=== PATIENT | female | born 1935 | race Caucasian/White ===

== ENCOUNTER 2018-04-02 09:33 | Observation (INO) ==
[2018-04-02 10:31] LABS: Basophils # 0.1 10*3/uL (0.0-0.2); Basophils % 0.9 % (0.0-0.8); Eosinophils # 0.3 10*3/uL (0.0-0.87); Eosinophils % 5.8 % (0.00-10.9); Hematocrit 38.2 VOL% (35.7-47.0); Hemoglobin 12.9 GM/DL (12.0-16.0); Immature Granulocytes % 0.2 %; Immature Granulocytes Absolute 0.01 #; Lymphocytes # 1.3 10*3/uL (1.4-4.0); Lymphocytes % 24.6 % (21.3-54.2); Mean Corpuscular HGB Conc 33.8 GM/DL (32-36); Mean Corpuscular Hemoglobin 32 PG (27-34); Mean Platelet Volume 11.3 FL (9.6-12.0); Monocytes # 0.5 10*3/uL (0.11-0.8); Monocytes % 8.8 % (1.7-12.7); Neutrophils # 3.2 10*3/uL (1.4-7.4); Neutrophils % 59.7 % (38.7-73.9); Platelet Count 169 T/CUMM (130-400); Red Blood Count 3.98 MC/CUMM (3.8-5.5); Red Cell Distribution Width 12.6 % (9.3-17.3); White Blood Count 5.4 T/CUMM (4-12)
[2018-04-02 10:44] LABS: Alanine Aminotransferase 15 U/L (13-56); Albumin 3.5 G/DL (3.4-5.0); Alkaline Phosphatase 56 U/L (45-117); Aspartate Amino Transferase 15 U/L (0-37); Blood Urea Nitrogen 28 MG/DL (7-18); Glucose 116 MG/DL (74-106); Osmolality,Calculated 292.8 MOS/KG (273-304); Potassium 3.6 MMOL/L (3.5-5.1); Sodium 144 MMOL/L (136-145); Total Protein 7.2 G/DL (6.4-8.3)
[2018-04-02] MEDS ORDERED: ALBUTEROL/IPRATROPIUM 3 ML NEB RESP TX STA (10:52)
[2018-04-02] MEDS ORDERED: ONDANSETRON 4 MG/2 ML VIAL IV STA (10:52)
[2018-04-02] MEDS ORDERED: FUROSEMIDE 100 MG/10 ML VIAL IV STA (10:52)
[2018-04-02 12:58] LABS: Apearance,Urine Slightly Hazy (Clear); Bacteria,Urine Many /HPF (Few); Bilirubin,Urine Negative (Negative); Blood, Urine Negative (Negative); Glucose,Urine (UA) Negative (Negative); Ketones,Urine Negative (Negative); Mucus,Urine Occasional /LPF (Occasional); Nitrite,Urine Negative (Negative); Protein,Urine Negative; RBC,Urine 3 /HPF (0-4); Squamous Epithelial Cell,Urine Occasional /HPF (0-10); Transitional Epi Cells,Urine Occasional /HPF (<1); Urine Color Yellow (Yellow); Urine Specific Gravity 1.008 (1.001-1.035); Urine Urobilinogen < 2.0 EU/DL (0.2-1.0); WBC,Urine 37 /HPF (0-6)
[2018-04-02] MEDS ORDERED: cefTRIAXone 1,000 MG in SODIUM CHLORIDE 0.9% 100 ML IV STA (13:38)
[2018-04-02 15:23] LABS: Lactic Acid 2.9 MMOL/L (0.4-2.0)
[2018-04-02] MEDS ORDERED: LEVOFLOXACIN INJ 500 MG in PREMIX 1 EACH IV ONE (16:00)
[2018-04-02] MEDS ORDERED: ACETAMINOPHEN 325 MG TABLET PO PRN (16:15)
[2018-04-02] MEDS ORDERED: ONDANSETRON 4 MG/2 ML VIAL IV PRN (16:15)
[2018-04-02] MEDS: cefTRIAXone 1,000 MG in SYRINGE 1 EACH IV SCH (16:37)
[2018-04-02] MEDS: SODIUM CHLORIDE 0.9% 1,000 ML IV SCH (16:54)
[2018-04-02] MEDS: ENOXAPARIN 40 MG/0.4 ML SYRINGE SUBCUT SCH (16:55)
[2018-04-02 18:08] LABS: INR 0.9; PT Patient Result 9.9 SECS
[2018-04-02] MEDS: DOCUSATE SODIUM 100 MG CAPSULE PO SCH (20:09)
[2018-04-02] MEDS: DONEPEZIL 5 MG TABLET PO SCH (20:09)
[2018-04-02] MEDS: SIMVASTATIN 20 MG TABLET PO SCH (20:09)
[2018-04-03] MEDS: SODIUM CHLORIDE 0.9% 1,000 ML IV SCH ×2 (05:23→20:58)
[2018-04-03 05:38] LABS: Basophils # 0.1 10*3/uL (0.0-0.2); Basophils % 0.9 % (0.0-0.8); Eosinophils # 0.3 10*3/uL (0.0-0.87); Eosinophils % 4.1 % (0.00-10.9); Hematocrit 37.7 VOL% (35.7-47.0); Hemoglobin 12.5 GM/DL (12.0-16.0); Immature Granulocytes % 0.3 %; Immature Granulocytes Absolute 0.02 #; Lymphocytes # 1.8 10*3/uL (1.4-4.0); Mean Corpuscular HGB Conc 33.2 GM/DL (32-36); Mean Corpuscular Hemoglobin 32 PG (27-34); Mean Corpuscular Volume 95.4 FL (87-102); Mean Platelet Volume 10.9 FL (9.6-12.0); Monocytes # 0.6 10*3/uL (0.11-0.8); Monocytes % 8.7 % (1.7-12.7); Neutrophils # 4.2 10*3/uL (1.4-7.4); Platelet Count 172 T/CUMM (130-400); Red Blood Count 3.95 MC/CUMM (3.8-5.5); Red Cell Distribution Width 12.6 % (9.3-17.3)
[2018-04-03 06:10] LABS: Albumin 3.1 G/DL (3.4-5.0); Bilirubin,Total 0.6 MG/DL (0.2-1.0); Calcium 8.8 MG/DL (8.5-10.1); Osmolality,Calculated 291.8 MOS/KG (273-304); Risk Ratio 2.7; Total Protein 6.7 G/DL (6.4-8.3); VLDL CHOLESTEROL 24.2 MG/DL
[2018-04-03] MEDS: ASPIRIN EC 81 MG TABLET PO SCH (08:31)
[2018-04-03] MEDS: PANTOPRAZOLE 40 MG VIAL IV SCH (08:31)
[2018-04-03] MEDS: amLODIPine 5 MG TABLET PO SCH (08:31)
[2018-04-03] MEDS: DOCUSATE SODIUM 100 MG CAPSULE PO SCH ×2 (08:31→20:58)
[2018-04-03] MEDS: SERTRALINE 25 MG TABLET PO SCH (08:31)
[2018-04-03] MEDS ORDERED: MELATONIN 3 MG TABLET PO PRN (08:59)
[2018-04-03 09:54] LABS: Apearance,Urine Slightly Hazy (Clear); Bacteria,Urine Occasional /HPF (Few); Bilirubin,Urine Negative (Negative); Blood, Urine Negative (Negative); Glucose,Urine (UA) Negative (Negative); Ketones,Urine Negative (Negative); Mucus,Urine Many /LPF (Occasional); Nitrite,Urine Positive (Negative); Protein,Urine Negative; RBC,Urine 1 /HPF (0-4); Squamous Epithelial Cell,Urine Occasional /HPF (0-10); Urine Color Yellow (Yellow); Urine Urobilinogen < 2.0 EU/DL (0.2-1.0); WBC,Urine 20 /HPF (0-6)
[2018-04-03] MEDS: cefTRIAXone 1,000 MG in SYRINGE 1 EACH IV SCH (15:32)
[2018-04-03] MEDS: ENOXAPARIN 40 MG/0.4 ML SYRINGE SUBCUT SCH (15:32)
[2018-04-03] MEDS ORDERED: LEVOFLOXACIN INJ 250 MG in PREMIX 1 EACH IV SCH (16:00)
[2018-04-03] MEDS: SIMVASTATIN 20 MG TABLET PO SCH (20:58)
[2018-04-03] MEDS: DONEPEZIL 5 MG TABLET PO SCH (20:58)
[2018-04-04] MEDS: DOCUSATE SODIUM 100 MG CAPSULE PO SCH (09:26)
[2018-04-04] MEDS: SODIUM CHLORIDE 0.9% 1,000 ML IV SCH (09:26)
[2018-04-04] MEDS: amLODIPine 5 MG TABLET PO SCH (09:26)
[2018-04-04] MEDS: SERTRALINE 25 MG TABLET PO SCH (09:26)
[2018-04-04] MEDS: PANTOPRAZOLE 40 MG VIAL IV SCH (09:27)
[2018-04-04] MEDS: ASPIRIN EC 81 MG TABLET PO SCH (09:27)
[2018-04-04 12:00] VITALS: BP 160/74
== END 2018-04-04 11:00 | disposition home health service (06) ==
LOC: N.ED 09:33 → N.EDINP 09:33 → N.5E 16:20
PROVIDERS: ADMIT Family Medicine; ATTEND Family Medicine

== ENCOUNTER 2019-10-12 19:05 | Observation (INO) ==
[2019-10-12] MEDS ORDERED: ONDANSETRON 4 MG/2 ML VIAL IV ONE ×2 (19:10→20:37)
[2019-10-12] MEDS ORDERED: MORPHINE 4 MG/1 ML VIAL IV ONE ×2 (19:10→20:37)
[2019-10-12] MEDS ORDERED: SODIUM CHLORIDE 0.9% 1,000 ML IV STA ×2 (19:10→20:22)
[2019-10-12 19:44] LABS: Basophils # 0.1 10*3/uL (0.0-0.2); Basophils % 0.7 % (0.0-0.8); Eosinophils # 0.3 10*3/uL (0.0-0.87); Eosinophils % 3.3 % (0.00-10.9); Hematocrit 37.5 VOL% (35.7-47.0); Hemoglobin 12.5 GM/DL (12.0-16.0); Immature Granulocytes % 0.3 %; Immature Granulocytes Absolute 0.03 #; Lymphocytes # 1.8 10*3/uL (1.4-4.0); Lymphocytes % 17.6 % (21.3-54.2); Mean Corpuscular HGB Conc 33.3 GM/DL (32-36); Mean Corpuscular Volume 96.6 FL (87-102); Monocytes % 7.8 % (1.7-12.7); Neutrophils % 70.3 % (38.7-73.9); Platelet Count 159 T/CUMM (130-400); Red Blood Count 3.88 MC/CUMM (3.8-5.5); Red Cell Distribution Width 12.7 % (9.3-17.3); White Blood Count 9.9 T/CUMM (4-12)
[2019-10-12 19:53] LABS: INR 0.9
[2019-10-12 20:02] LABS: Alanine Aminotransferase 13 U/L (13-56); Albumin 3.7 G/DL (3.4-5.0); Alkaline Phosphatase 64 U/L (45-117); Aspartate Amino Transferase 18 U/L (0-37); Bilirubin,Total < 0.39 MG/DL (0.2-1.0); Blood Urea Nitrogen 24 MG/DL (7-18); Calcium 9.2 MG/DL (8.5-10.1); Estimated Glom Filtration Rate 27 ML/MIN; Glucose 93 MG/DL (74-106); Osmolality,Calculated 278.7 MOS/KG (273-304); Total Protein 7.2 G/DL (6.4-8.3); Troponin I < 0.015 NG/ML (0.00-0.045)
[2019-10-12] MEDS ORDERED: CYCLOBENZAPRINE 10 MG TABLET PO STA (21:18)
[2019-10-12 22:22] LABS: Apearance,Urine CLEAR (Clear); Bilirubin,Urine Negative (Negative); Blood, Urine Negative (Negative); Glucose,Urine (UA) Negative (Negative); Hyaline Casts,Urine 11 /LPF (0-3); Ketones,Urine Negative (Negative); Nitrite,Urine Negative (Negative); Protein,Urine Negative; RBC,Urine 1 /HPF (0-4); Squamous Epithelial Cell,Urine Occasional /HPF (0-10); Urine Color Straw (Yellow); Urine Specific Gravity 1.023 (1.001-1.035); Urine Urobilinogen < 2.0 EU/DL (0.2-1.0); WBC,Urine 13 /HPF (0-6)
[2019-10-13] MEDS ORDERED: ONDANSETRON 4 MG/2 ML VIAL IV PRN (00:57)
[2019-10-13] MEDS ORDERED: MORPHINE 4 MG/1 ML VIAL IV PRN (00:57)
[2019-10-13] MEDS ORDERED: ALBUTEROL 2.5 MG/3 ML NEB RESP TX PRN (00:57)
[2019-10-13] MEDS ORDERED: DOCUSATE SODIUM 100 MG CAPSULE PO PRN (00:57)
[2019-10-13] MEDS ORDERED: ACETAMINOPHEN 325 MG TABLET PO PRN (00:57)
[2019-10-13] MEDS: ENOXAPARIN 30 MG/0.3 ML SYRINGE SUBCUT SCH (01:38)
[2019-10-13] MEDS: DONEPEZIL 10 MG TABLET PO SCH ×2 (01:38→20:20)
[2019-10-13] MEDS: cefTRIAXone 1,000 MG in SYRINGE 1 EACH IV SCH (01:38)
[2019-10-13] MEDS: SIMVASTATIN 20 MG TABLET PO SCH ×2 (01:38→20:21)
[2019-10-13] MEDS: SODIUM CHLORIDE 0.9% 1,000 ML IV SCH ×2 (01:38→14:28)
[2019-10-13 03:40] LABS: Basophils % 0.4 % (0.0-0.8); Eosinophils % 0.1 % (0.00-10.9); Hematocrit 32.1 VOL% (35.7-47.0); Hemoglobin 10.6 GM/DL (12.0-16.0); Immature Granulocytes % 0.4 %; Immature Granulocytes Absolute 0.03 #; Lymphocytes # 0.5 10*3/uL (1.4-4.0); Lymphocytes % 6.2 % (21.3-54.2); Mean Corpuscular Volume 97.3 FL (87-102); Mean Platelet Volume 11.4 FL (9.6-12.0); Monocytes % 6.3 % (1.7-12.7); Neutrophils % 86.6 % (38.7-73.9); Platelet Count 132 T/CUMM (130-400); Red Cell Distribution Width 12.8 % (9.3-17.3); White Blood Count 7.9 T/CUMM (4-12)
[2019-10-13 04:18] LABS: Calcium 7.9 MG/DL (8.5-10.1); Osmolality,Calculated 282.4 MOS/KG (273-304); Risk Ratio 2.36; Thyroid Stimulating Hormone 1.91 uIU/ml (0.358-3.74); VLDL CHOLESTEROL 11.6 MG/DL
[2019-10-13] MEDS: ASPIRIN EC 81 MG TABLET PO SCH (09:06)
[2019-10-13] MEDS: amLODIPine 5 MG TABLET PO SCH (09:06)
[2019-10-13] MEDS: PANTOPRAZOLE 40 MG TABLET PO SCH (09:06)
[2019-10-13] MEDS: DICLOFENAC 1% GEL 100 GM TUBE TOP SCH ×4 (12:12→20:21)
[2019-10-14] MEDS: cefTRIAXone 1,000 MG in SYRINGE 1 EACH IV SCH (01:23)
[2019-10-14] MEDS: ENOXAPARIN 30 MG/0.3 ML SYRINGE SUBCUT SCH (01:26)
[2019-10-14] MEDS: SODIUM CHLORIDE 0.9% 1,000 ML IV SCH ×2 (03:55→18:02)
[2019-10-14 05:23] LABS: Calcium 7.9 MG/DL (8.5-10.1); Osmolality,Calculated 278.4 MOS/KG (273-304)
[2019-10-14] MEDS ORDERED: ORPHENADRINE 60 MG/2 ML VIAL IV PRN (06:00)
[2019-10-14] MEDS: ASPIRIN EC 81 MG TABLET PO SCH (09:03)
[2019-10-14] MEDS: amLODIPine 5 MG TABLET PO SCH (09:03)
[2019-10-14] MEDS: PANTOPRAZOLE 40 MG TABLET PO SCH (09:03)
[2019-10-14] MEDS: DICLOFENAC 1% GEL 100 GM TUBE TOP SCH ×4 (09:05→20:38)
[2019-10-14] MEDS: methylPREDNISolone SOD SUC 40 MG/1 ML VIAL IV SCH (17:31)
[2019-10-14] MEDS: DONEPEZIL 10 MG TABLET PO SCH (20:36)
[2019-10-14] MEDS: SIMVASTATIN 20 MG TABLET PO SCH (20:36)
[2019-10-15] MEDS: ENOXAPARIN 30 MG/0.3 ML SYRINGE SUBCUT SCH (01:48)
[2019-10-15 05:13] LABS: Basophils % 0.6 % (0.0-0.8); Eosinophils % 0.2 % (0.00-10.9); Hematocrit 31.8 VOL% (35.7-47.0); Hemoglobin 10.5 GM/DL (12.0-16.0); Immature Granulocytes % 0.4 %; Immature Granulocytes Absolute 0.02 #; Lymphocytes # 0.6 10*3/uL (1.4-4.0); Lymphocytes % 12.5 % (21.3-54.2); Mean Corpuscular Volume 97.8 FL (87-102); Mean Platelet Volume 11.7 FL (9.6-12.0); Neutrophils % 81.3 % (38.7-73.9); Platelet Count 144 T/CUMM (130-400); Red Blood Count 3.25 MC/CUMM (3.8-5.5); Red Cell Distribution Width 12.5 % (9.3-17.3)
[2019-10-15 05:23] LABS: Calcium 8.1 MG/DL (8.5-10.1); Osmolality,Calculated 277.5 MOS/KG (273-304)
[2019-10-15] MEDS ORDERED: POLYETHYLENE GLYCOL POWDER 17 GM PACK PO SCH (09:00)
[2019-10-15] MEDS: amLODIPine 5 MG TABLET PO SCH (09:45)
[2019-10-15] MEDS: ASPIRIN EC 81 MG TABLET PO SCH (09:45)
[2019-10-15] MEDS: PANTOPRAZOLE 40 MG TABLET PO SCH (09:45)
[2019-10-15] MEDS: methylPREDNISolone SOD SUC 40 MG/1 ML VIAL IV SCH (09:45)
[2019-10-15] MEDS: DICLOFENAC 1% GEL 100 GM TUBE TOP SCH (09:48)
[2019-10-15 11:49] VITALS: BP 149/100
[2019-10-15] MEDS ORDERED: methylPREDNISolone SOD SUC 40 MG/1 ML VIAL IV SCH (16:43)
== END 2019-10-15 14:31 | disposition home or self-care (01) ==
LOC: EDUNIT# → EDBD → N.ED 19:05 → N.EDINP 19:05 → N.4E 10-13 00:39
PROVIDERS: ADMIT Internal Medicine; ATTEND Internal Medicine

== ENCOUNTER 2019-10-25 09:15 | Observation (INO) ==
[2019-10-25 09:51] LABS: Basophils % 0.3 % (0.0-0.8); Eosinophils # 0.1 10*3/uL (0.0-0.87); Eosinophils % 1.3 % (0.00-10.9); Hematocrit 41.6 VOL% (35.7-47.0); Hemoglobin 13.5 GM/DL (12.0-16.0); Immature Granulocytes % 0.3 %; Immature Granulocytes Absolute 0.03 #; Lymphocytes # 1.9 10*3/uL (1.4-4.0); Lymphocytes % 20.7 % (21.3-54.2); Mean Corpuscular HGB Conc 32.5 GM/DL (32-36); Mean Corpuscular Volume 98.6 FL (87-102); Mean Platelet Volume 11.1 FL (9.6-12.0); Monocytes % 9.6 % (1.7-12.7); Neutrophils % 67.8 % (38.7-73.9); Platelet Count 249 T/CUMM (130-400); Red Blood Count 4.22 MC/CUMM (3.8-5.5); Red Cell Distribution Width 13.2 % (9.3-17.3); White Blood Count 9.3 T/CUMM (4-12)
[2019-10-25 10:01] LABS: INR 0.9; PT Patient Result 10.2 SECS (9.6-12.2)
[2019-10-25 10:09] LABS: Alanine Aminotransferase 14 U/L (13-56); Albumin 3.6 G/DL (3.4-5.0); Alkaline Phosphatase 47 U/L (45-117); Aspartate Amino Transferase 15 U/L (0-37); Blood Urea Nitrogen 19 MG/DL (7-18); Calcium 8.6 MG/DL (8.5-10.1); Estimated Glom Filtration Rate 34 ML/MIN; Glucose 98 MG/DL (74-106); Osmolality,Calculated 282.3 MOS/KG (273-304); Total Protein 6.9 G/DL (6.4-8.3); Troponin I < 0.015 NG/ML (0.00-0.045)
[2019-10-25] MEDS ORDERED: POTASSIUM BICARB EFFERVESCENT 25 MEQ TABLET PO ONE (10:49)
[2019-10-25] MEDS ORDERED: ONDANSETRON 4 MG/2 ML VIAL IV PRN (11:32)
[2019-10-25] MEDS: SODIUM CHLOR 0.9% KCL 40 MEQ 40 MEQ/1,000 ML BAG IV SCH ×2 (13:35→21:29)
[2019-10-25 16:00] LABS: Barbiturates Screen,Urine Negative (Negative); Benzodiazepines Screen,Urine Negative (Negative); Cannabinoid Screen,Urine Negative (Negative); Opiate Screen,Urine Negative (Negative); Phencyclidine Screen,Urine Negative (Negative)
[2019-10-25 16:01] LABS: Apearance,Urine CLEAR (Clear); Bilirubin,Urine Negative (Negative); Blood, Urine Small mg/dL (Negative); Glucose,Urine (UA) Negative (Negative); Ketones,Urine Negative (Negative); Nitrite,Urine Negative (Negative); Protein,Urine Negative; RBC,Urine 1 /HPF (0-4); Squamous Epithelial Cell,Urine Occasional /HPF (0-10); Urine Color Yellow (Yellow); Urine Specific Gravity 1.006 (1.001-1.035); Urine Urobilinogen < 2.0 EU/DL (0.2-1.0); WBC,Urine 4 /HPF (0-6)
[2019-10-25] MEDS ORDERED: SIMVASTATIN 20 MG TABLET PO SCH (21:00)
[2019-10-25] MEDS ORDERED: DONEPEZIL 10 MG TABLET PO SCH (21:00)
[2019-10-25] MEDS ORDERED: ENOXAPARIN 40 MG/0.4 ML SYRINGE SUBCUT SCH (21:00)
[2019-10-26] MEDS: SODIUM CHLOR 0.9% KCL 40 MEQ 40 MEQ/1,000 ML BAG IV SCH (05:37)
[2019-10-26] MEDS ORDERED: PANTOPRAZOLE 40 MG TABLET PO SCH ×2 (06:30→09:00)
[2019-10-26 06:55] LABS: Basophils % 0.5 % (0.0-0.8); Eosinophils # 0.2 10*3/uL (0.0-0.87); Eosinophils % 2.9 % (0.00-10.9); Hematocrit 35.2 VOL% (35.7-47.0); Hemoglobin 11.2 GM/DL (12.0-16.0); Immature Granulocytes % 0.5 %; Immature Granulocytes Absolute 0.03 #; Lymphocytes # 1.5 10*3/uL (1.4-4.0); Mean Corpuscular HGB Conc 31.8 GM/DL (32-36); Mean Platelet Volume 11.3 FL (9.6-12.0); Monocytes % 7.5 % (1.7-12.7); Neutrophils % 63.6 % (38.7-73.9); Platelet Count 193 T/CUMM (130-400); Red Blood Count 3.45 MC/CUMM (3.8-5.5); Red Cell Distribution Width 13.3 % (9.3-17.3); White Blood Count 6.1 T/CUMM (4-12)
[2019-10-26 07:32] LABS: Albumin 2.9 G/DL (3.4-5.0); Bilirubin,Total 0.5 MG/DL (0.2-1.0); Calcium 8.1 MG/DL (8.5-10.1); Osmolality,Calculated 288.7 MOS/KG (273-304); Thyroid Stimulating Hormone 3.38 uIU/ml (0.358-3.74); Total Protein 5.5 G/DL (6.4-8.3)
[2019-10-26 07:56] VITALS: BP 153/69
[2019-10-26] MEDS ORDERED: POTASSIUM CHLORIDE 20 MEQ TABLET PO PRN (07:59)
[2019-10-26] MEDS ORDERED: SODIUM CHLORIDE 0.9% 1,000 ML IV SCH (08:00)
[2019-10-26] MEDS ORDERED: amLODIPine 5 MG TABLET PO SCH (09:00)
[2019-10-26] MEDS ORDERED: LISINOPRIL/HCTZ 20-12.5 MG TABLET PO SCH (09:00)
[2019-10-26] MEDS ORDERED: ASPIRIN EC 81 MG TABLET PO SCH (09:00)
== END 2019-10-26 11:52 | disposition home or self-care (01) ==
LOC: N.EDINP 09:15 → N.ED 09:15 → N.EDINP 12:54 → N.2E 13:03
PROVIDERS: ADMIT Family Medicine; ATTEND Family Medicine

== ENCOUNTER 2020-01-24 09:13 | Inpatient (IN) ==
[2020-01-24] MEDS ORDERED: ASPIRIN EC 325 MG TABLET PO STA (09:38)
[2020-01-24] MEDS ORDERED: ONDANSETRON 4 MG/2 ML VIAL IV STA (09:38)
[2020-01-24] MEDS ORDERED: DILTIAZEM 50 MG/10 ML VIAL IV STA (09:38)
[2020-01-24 10:02] LABS: Basophils # 0.1 10*3/uL (0.0-0.2); Basophils % 0.9 % (0.0-0.8); Eosinophils # 0.2 10*3/uL (0.0-0.87); Eosinophils % 2.5 % (0.00-10.9); Hematocrit 35.4 VOL% (35.7-47.0); Hemoglobin 11.5 GM/DL (12.0-16.0); Immature Granulocytes % 0.4 %; Immature Granulocytes Absolute 0.03 #; Lymphocytes # 1.5 10*3/uL (1.4-4.0); Lymphocytes % 18.2 % (21.3-54.2); Mean Corpuscular HGB Conc 32.5 GM/DL (32-36); Mean Corpuscular Volume 98.9 FL (87-102); Mean Platelet Volume 10.9 FL (9.6-12.0); Monocytes % 7.6 % (1.7-12.7); Neutrophils % 70.4 % (38.7-73.9); Platelet Count 205 T/CUMM (130-400); Red Blood Count 3.58 MC/CUMM (3.8-5.5); Red Cell Distribution Width 13.4 % (9.3-17.3)
[2020-01-24 10:14] LABS: INR 0.9; PT Patient Result 10.2 SECS (9.8-11.9)
[2020-01-24 10:24] LABS: Alanine Aminotransferase < 9 U/L (13-56); Albumin 3.6 G/DL (3.4-5.0); Alkaline Phosphatase 52 U/L (45-117); Aspartate Amino Transferase 16 U/L (0-37); Bilirubin,Total < 0.39 MG/DL (0.2-1.0); Blood Urea Nitrogen 26 MG/DL (7-18); Calcium 9.6 MG/DL (8.5-10.1); Estimated Glom Filtration Rate 27 ML/MIN; Glucose 94 MG/DL (74-106); Osmolality,Calculated 281.5 MOS/KG (273-304); Total Protein 6.9 G/DL (6.4-8.3)
[2020-01-24] MEDS: dilTIAZem Drip 125 MG/125 ML PREMIX IV SCH (10:24)
[2020-01-24] MEDS ORDERED: ACETAMINOPHEN 325 MG TABLET PO PRN (11:01)
[2020-01-24] MEDS ORDERED: ENOXAPARIN 80 MG/0.8 ML SYRINGE SUBCUT SCH (12:30)
[2020-01-24] MEDS: cefTRIAXone 1,000 MG in SYRINGE 1 EACH IV SCH (18:04)
[2020-01-24] MEDS: SODIUM CHLORIDE 0.9% 1,000 ML IV SCH (18:04)
[2020-01-24] MEDS: SIMVASTATIN 20 MG TABLET PO SCH (22:11)
[2020-01-24] MEDS: SOTALOL 80 MG TABLET PO SCH (22:11)
[2020-01-24] MEDS: DONEPEZIL 10 MG TABLET PO SCH (22:11)
[2020-01-25 08:09] LABS: Basophils # 0.1 10*3/uL (0.0-0.2); Basophils % 1.1 % (0.0-0.8); Eosinophils # 0.3 10*3/uL (0.0-0.87); Eosinophils % 4.6 % (0.00-10.9); Hematocrit 34.3 VOL% (35.7-47.0); Hemoglobin 10.8 GM/DL (12.0-16.0); Immature Granulocytes % 0.2 %; Immature Granulocytes Absolute 0.01 #; Lymphocytes # 1.1 10*3/uL (1.4-4.0); Lymphocytes % 20.7 % (21.3-54.2); Mean Corpuscular HGB Conc 31.5 GM/DL (32-36); Mean Corpuscular Volume 99.7 FL (87-102); Mean Platelet Volume 10.3 FL (9.6-12.0); Monocytes % 7.7 % (1.7-12.7); Neutrophils % 65.7 % (38.7-73.9); Platelet Count 176 T/CUMM (130-400); Red Blood Count 3.44 MC/CUMM (3.8-5.5); Red Cell Distribution Width 13.5 % (9.3-17.3); White Blood Count 5.5 T/CUMM (4-12)
[2020-01-25 08:29] LABS: Calcium 8.7 MG/DL (8.5-10.1); Osmolality,Calculated 278.5 MOS/KG (273-304)
[2020-01-25] MEDS: amLODIPine 5 MG TABLET PO SCH (09:08)
[2020-01-25] MEDS: SOTALOL 80 MG TABLET PO SCH ×2 (09:08→21:25)
[2020-01-25] MEDS: ASPIRIN EC 81 MG TABLET PO SCH (09:08)
[2020-01-25] MEDS: ENOXAPARIN 80 MG/0.8 ML SYRINGE SUBCUT SCH (13:51)
[2020-01-25] MEDS: SODIUM CHLORIDE 0.9% 1,000 ML IV SCH (13:52)
[2020-01-25] MEDS: dilTIAZem Drip 125 MG/125 ML PREMIX IV SCH (13:52)
[2020-01-25] MEDS: cefTRIAXone 1,000 MG in SYRINGE 1 EACH IV SCH (17:57)
[2020-01-25] MEDS: SIMVASTATIN 20 MG TABLET PO SCH (21:25)
[2020-01-25] MEDS: DONEPEZIL 10 MG TABLET PO SCH (21:26)
[2020-01-26] MEDS: ENOXAPARIN 80 MG/0.8 ML SYRINGE SUBCUT SCH ×2 (01:41→12:24)
[2020-01-26 05:56] LABS: Basophils # 0.1 10*3/uL (0.0-0.2); Eosinophils # 0.3 10*3/uL (0.0-0.87); Eosinophils % 5.1 % (0.00-10.9); Hematocrit 32.3 VOL% (35.7-47.0); Hemoglobin 10.5 GM/DL (12.0-16.0); Immature Granulocytes % 0.2 %; Immature Granulocytes Absolute 0.01 #; Lymphocytes # 1.3 10*3/uL (1.4-4.0); Lymphocytes % 25.7 % (21.3-54.2); Mean Corpuscular HGB Conc 32.5 GM/DL (32-36); Mean Corpuscular Volume 96.1 FL (87-102); Mean Platelet Volume 11.5 FL (9.6-12.0); Monocytes % 9.1 % (1.7-12.7); Neutrophils % 58.9 % (38.7-73.9); Platelet Count 179 T/CUMM (130-400); Red Blood Count 3.36 MC/CUMM (3.8-5.5); Red Cell Distribution Width 13.2 % (9.3-17.3); White Blood Count 5.1 T/CUMM (4-12)
[2020-01-26 06:30] LABS: Calcium 8.4 MG/DL (8.5-10.1); Osmolality,Calculated 281.3 MOS/KG (273-304)
[2020-01-26] MEDS: ASPIRIN EC 81 MG TABLET PO SCH (09:27)
[2020-01-26] MEDS: amLODIPine 5 MG TABLET PO SCH (09:27)
[2020-01-26] MEDS: SODIUM CHLORIDE 0.9% 1,000 ML IV SCH (09:27)
[2020-01-26] MEDS: dilTIAZem Drip 125 MG/125 ML PREMIX IV SCH (12:13)
[2020-01-26] MEDS ORDERED: LEVOFLOXACIN INJ 500 MG in PREMIX 1 EACH IV SCH (15:00)
[2020-01-26] MEDS: LEVOFLOXACIN 250 MG TABLET PO SCH (15:39)
[2020-01-26] MEDS: SIMVASTATIN 20 MG TABLET PO SCH (21:42)
[2020-01-26] MEDS: DONEPEZIL 10 MG TABLET PO SCH (21:42)
[2020-01-27] MEDS: ENOXAPARIN 80 MG/0.8 ML SYRINGE SUBCUT SCH (00:04)
[2020-01-27 07:01] LABS: Basophils % 0.9 % (0.0-0.8); Eosinophils # 0.1 10*3/uL (0.0-0.87); Eosinophils % 2.8 % (0.00-10.9); Hematocrit 32.8 VOL% (35.7-47.0); Hemoglobin 10.7 GM/DL (12.0-16.0); Immature Granulocytes % 0.2 %; Immature Granulocytes Absolute 0.01 #; Lymphocytes # 1.4 10*3/uL (1.4-4.0); Lymphocytes % 28.9 % (21.3-54.2); Mean Corpuscular HGB Conc 32.6 GM/DL (32-36); Mean Corpuscular Volume 97.9 FL (87-102); Mean Platelet Volume 10.7 FL (9.6-12.0); Monocytes % 8.1 % (1.7-12.7); Neutrophils % 59.1 % (38.7-73.9); Platelet Count 177 T/CUMM (130-400); Red Blood Count 3.35 MC/CUMM (3.8-5.5); Red Cell Distribution Width 13.1 % (9.3-17.3); White Blood Count 4.7 T/CUMM (4-12)
[2020-01-27 07:16] LABS: Calcium 8.7 MG/DL (8.5-10.1); Osmolality,Calculated 273.7 MOS/KG (273-304)
[2020-01-27] MEDS: ASPIRIN EC 81 MG TABLET PO SCH (10:05)
[2020-01-27] MEDS: SODIUM CHLORIDE 0.9% 1,000 ML IV SCH (10:05)
[2020-01-27] MEDS: amLODIPine 5 MG TABLET PO SCH (10:05)
[2020-01-27] MEDS: dilTIAZem Drip 125 MG/125 ML PREMIX IV SCH (10:31)
[2020-01-27] MEDS ORDERED: diphenhydrAMINE CAP 25 MG CAPSULE PO ONE (12:59)
[2020-01-27] MEDS ORDERED: DIAZEPAM 5 MG TABLET PO ONE (12:59)
[2020-01-27] MEDS: LEVOFLOXACIN 250 MG TABLET PO SCH (16:47)
[2020-01-27] MEDS: DONEPEZIL 10 MG TABLET PO SCH (22:31)
[2020-01-27] MEDS: SIMVASTATIN 20 MG TABLET PO SCH (22:31)
[2020-01-28] MEDS: SODIUM CHLORIDE 0.9% 1,000 ML IV SCH ×2 (01:57→07:19)
[2020-01-28] MEDS ORDERED: diphenhydrAMINE CAP 25 MG CAPSULE PO ONE (06:00)
[2020-01-28] MEDS ORDERED: DIAZEPAM 5 MG TABLET PO ONE (06:00)
[2020-01-28 06:02] LABS: Basophils # 0.1 10*3/uL (0.0-0.2); Eosinophils # 0.1 10*3/uL (0.0-0.87); Eosinophils % 2.9 % (0.00-10.9); Hematocrit 31.2 VOL% (35.7-47.0); Hemoglobin 10.3 GM/DL (12.0-16.0); Immature Granulocytes % 0.2 %; Immature Granulocytes Absolute 0.01 #; Lymphocytes % 21.6 % (21.3-54.2); Mean Platelet Volume 10.7 FL (9.6-12.0); Monocytes % 9.8 % (1.7-12.7); Neutrophils % 64.5 % (38.7-73.9); Platelet Count 188 T/CUMM (130-400); Red Blood Count 3.25 MC/CUMM (3.8-5.5); Red Cell Distribution Width 13.1 % (9.3-17.3); White Blood Count 4.8 T/CUMM (4-12)
[2020-01-28 06:29] LABS: Calcium 8.5 MG/DL (8.5-10.1); Osmolality,Calculated 278.3 MOS/KG (273-304)
[2020-01-28] MEDS: dilTIAZem Drip 125 MG/125 ML PREMIX IV SCH (09:12)
[2020-01-28] MEDS: ASPIRIN EC 81 MG TABLET PO SCH (09:13)
[2020-01-28] MEDS: amLODIPine 5 MG TABLET PO SCH (09:13)
[2020-01-28] MEDS ORDERED: LIDOCAINE 1% 20 ML VIAL ONE (09:30)
[2020-01-28] MEDS ORDERED: ceFAZolin 1,000 MG VIAL ONE ×2 (09:31→09:45)
[2020-01-28] MEDS ORDERED: TISSUE ADHESIVE 1 EACH APPLICATOR TOP ONE (09:45)
[2020-01-28] MEDS ORDERED: fentaNYL 100 MCG/2 ML VIAL ONE (09:47)
[2020-01-28] MEDS ORDERED: MIDAZOLAM 2 MG/2 ML VIAL ONE (09:47)
[2020-01-28] MEDS: LEVOFLOXACIN 250 MG TABLET PO SCH (15:29)
[2020-01-28] MEDS: MORPHINE 4 MG/1 ML VIAL IV PRN ×2 (18:15→23:38)
[2020-01-28] MEDS ORDERED: ONDANSETRON 4 MG/2 ML VIAL ONE (23:29)
[2020-01-28] MEDS: DONEPEZIL 10 MG TABLET PO SCH (23:36)
[2020-01-28] MEDS: ONDANSETRON 4 MG/2 ML VIAL IV PRN (23:36)
[2020-01-28] MEDS: SIMVASTATIN 20 MG TABLET PO SCH (23:36)
[2020-01-29 06:39] LABS: Basophils % 0.6 % (0.0-0.8); Eosinophils % 0.6 % (0.00-10.9); Hematocrit 32.8 VOL% (35.7-47.0); Hemoglobin 10.7 GM/DL (12.0-16.0); Immature Granulocytes % 0.4 %; Immature Granulocytes Absolute 0.03 #; Lymphocytes % 13.9 % (21.3-54.2); Mean Corpuscular HGB Conc 32.6 GM/DL (32-36); Mean Corpuscular Volume 97.6 FL (87-102); Mean Platelet Volume 11.7 FL (9.6-12.0); Neutrophils % 74.5 % (38.7-73.9); Platelet Count 158 T/CUMM (130-400); Red Blood Count 3.36 MC/CUMM (3.8-5.5); Red Cell Distribution Width 13.2 % (9.3-17.3)
[2020-01-29 06:54] LABS: Calcium 8.7 MG/DL (8.5-10.1); Osmolality,Calculated 274.5 MOS/KG (273-304)
[2020-01-29 07:15] LABS: Hypochromasia 1+; Microcytosis Slight; Ovalocytes Slight; Platelet Estimate Normal
[2020-01-29] MEDS: ASPIRIN EC 81 MG TABLET PO SCH (08:33)
[2020-01-29] MEDS: amLODIPine 5 MG TABLET PO SCH (08:33)
[2020-01-29] MEDS: SOTALOL 80 MG TABLET PO SCH ×2 (08:33→23:12)
[2020-01-29] MEDS: LEVOFLOXACIN 250 MG TABLET PO SCH (15:19)
[2020-01-29] MEDS: SIMVASTATIN 20 MG TABLET PO SCH (21:44)
[2020-01-29] MEDS: DONEPEZIL 10 MG TABLET PO SCH (21:44)
[2020-01-30] MEDS: ASPIRIN EC 81 MG TABLET PO SCH (09:02)
[2020-01-30] MEDS: amLODIPine 5 MG TABLET PO SCH (09:02)
[2020-01-30] MEDS: SOTALOL 80 MG TABLET PO SCH (09:02)
[2020-01-30] MEDS: ONDANSETRON 4 MG/2 ML VIAL IV PRN (11:28)
[2020-01-30 11:49] VITALS: BP 106/57
== END 2020-01-30 12:23 | disposition home or self-care (01) | DRG 243 ==
LOC: N.EDINP 09:13 → N.ED 09:13 → SUATTDRO 13:07 → N.TELES 13:44
PROVIDERS: ADMIT Nurse Practitioner; ATTEND Family Medicine